=== PATIENT | female | born 1980 | race Caucasian/White ===

== ENCOUNTER 2019-08-28 03:47 | Emergency (ER) | payer OTHER ==
[~2019-08-28] VITALS: Ht 172.7 cm; Wt 61.2 kg
[2019-08-28 03:55] VITALS: BP_SYST 100
--- NOTE | 2019-08-28 04:11 | NUR ---
Patient was wheeled into ED c/o abdominal pain that woke her up around 245am. Pt states she woke up with pain and had a hard time ambulating to the restroom. Pt states after urinating, she saw a bright light and called out for her . came in and stated that as soon as patient stood up with assistance, she had passed out for about 10-15 seconds. denies patient hitting her head. Pt felt nauseous, no vomiting, but resolved prior to coming into ED. No other injuries/complaints per patient or noted.
--- NOTE | 2019-08-28 04:12 | NUR ---
Patient to ER bed 8 to gown for evaluation. Side rails up. Report given to TONEY WIGGINS.
--- NOTE | 2019-08-28 04:24 | NUR ---
ER Dr. Fairbanks at bedside examining patient.
--- NOTE | 2019-08-28 04:48 | NUR ---
Blood was obtained and sent to lab. Pt tolerated well.
--- NOTE | 2019-08-28 04:50 | NUR ---
Xray at bedside, pt tolerated well.
[2019-08-28 04:58] LABS: BASOPHILS % (AUTO) 0.7 % (0.0-2.0); EOSINOPHILS # (AUTO) 0.1 K/uL (0.0-0.4); EOSINOPHILS % (AUTO) 1.1 % (0.0-4.0); HEMATOCRIT 36.2 % (36-48); HEMOGLOBIN 12.3 g/dL (12.0-16.0); LYMPHOCYTES # (AUTO) 2.4 K/uL (1.0-5.5); LYMPHOCYTES % (AUTO) 34.6 % (20.5-51.5); MEAN CORPUSCULAR HEMOGLOBIN 31 pg (27-31); MEAN CORPUSCULAR HGB CONC 34 % (32-36); MEAN CORPUSCULAR VOLUME 92 fL (79.0-98.0); MONOCYTES # (AUTO) 0.4 K/uL (0.0-1.0); MONOCYTES % (AUTO) 6.3 % (1.7-9.3); NEUTROPHILS # (AUTO) 3.9 K/uL (1.8-7.7); NEUTROPHILS % (AUTO) 57.3 % (40.0-70.0); PLATELET COUNT (AUTO) 212 K/uL (130-430); RED BLOOD CELL COUNT(AUTO) 3.94 MIL/uL (4.2-6.2); RED CELL DISTRIBUTION WIDTH 12.9 % (9.0-15.0); WHITE BLOOD COUNT (AUTO) 6.9 K/uL (4.8-10.8)
[2019-08-28 05:09] LABS: CALCIUM 8.5 mg/dL (8.4-11.0); CREATININE 0.79 mg/dL (0.55-1.30); POTASSIUM 3.8 mmol/L (3.5-5.1)
[2019-08-28 05:16] LABS: ALBUMIN 3.4 g/dL (3.4-4.8); TOTAL BILIRUBIN 0.3 mg/dL (0.0-1.0)
--- NOTE | 2019-08-28 05:34 | NUR ---
Patient went to Ultrasound in stable condition.
--- NOTE | 2019-08-28 06:26 | NUR ---
Patient returned from ultrasound in stable condition.
[2019-08-28] MEDS ORDERED: metroNIDAZOLE 500 MG TABLET PO ONE (07:00)
--- NOTE | 2019-08-28 07:07 | NUR ---
Medication was given, pt tolerated well. No adverse reaction, will continue to monitor.
[2019-08-28 07:20] VITALS: BP_SYST 93
--- NOTE | 2019-08-28 07:20 | NUR ---
Patient given written and verbal discharge instructions and verbalizes understanding. ER MD discussed with patient the results and treatment provided. Patient in stable condition. ID arm band removed. Rx of Doxycycline and Motrin given. Patient educated on pain management and to follow up with PMD. Pain Scale 0. Opportunity for questions provided and answered. Medication side effect fact sheet provided.
== END 2019-08-28 07:20 | disposition home or self-care (01) ==
LOC: SED 03:47
DX: D25.9 Leiomyoma of uterus, unspecified (principal); R55 Syncope and collapse; N70.11 Chronic salpingitis
CPT/HCPCS: 36415; 71045; 76700-TC; 76830-TC; 76857; 80053; 82550-TC; 83880; 84484; 85025; 93005; 99284